=== PATIENT | female | born 1985 | race Two or more races ===

== ENCOUNTER → 2019-11-30 | Emergency (ER) | payer MEDICAID, OTHER ==
[~2019-11-30] VITALS: Ht 167.6 cm; Wt 54.4 kg
[~2019-11-30] MED LIST: ONDANSETRON HCL 4 MG/2 ML VIAL IV ONE; ONDANSETRON HCL 4 MG/2 ML VIAL ONE; PROMETHAZINE HCL 25 MG/ML 1ML IV PRN; SODIUM CHLORIDE 0.9% 1,000 ML IV ONE; SODIUM CHLORIDE 0.9% 1,000 ML IVB ONE; cefTRIAXone 1GM/50ML D5W 50 ML IV ONE
[2019-11-30 13:50] LABS: Basophils # (auto) 0 10 ^3/uL (0-0.2); Eosinophils # (auto) 0 10 ^3/uL (0-0.8); Hemoglobin 13.5 g/dL (12.2-16.2); Mean Corpuscular Volume 80.2 fL (80.0-100.0); Monocytes # (auto) 0.5 10 ^3/uL (0-1.3)
[2019-11-30 13:53] LABS: Basophils % (auto) 0.4 % (0.0-2.0); Eosinophils % (auto) 0.2 % (0.0-7.0); Hematocrit 40.7 % (36.0-46.0); Lymphocytes # (auto) 1.6 10 ^3/uL (0.4-5.4); Lymphocytes % (auto) 21.3 % (10.0-50.0); Mean Corpuscular Hemoglobin 26.6 pg (28.0-32.0); Mean Corpuscular Hgb Conc. 33.2 g/dL (32.0-36.0); Neutrophils # (auto) 5.5 10 ^3/uL (1.6-8.6); Neutrophils % (auto) 72.1 % (37.0-80.0); Nucleated Red Blood Cells % 0.2 %; Platelet Count (auto) 344 10^3/uL (140-450); Red Blood Cells 5.08 10^6/uL (4.0-5.20); Red Cell Distribution Width 19.8 % (11.8-14.3); White Blood Cell 7.6 10^3/uL (4.4-10.8)
[2019-11-30 14:05] LABS: INR 1.22 (0.9-1.15)
[2019-11-30 14:11] LABS: Magnesium 2.6 mg/dL (1.6-2.6)
[2019-11-30 14:13] LABS: Albumin 3.4 g/dL (3.4-5.0); Anion Gap 13 (5-15); Blood Urea Nitrogen 63 mg/dL (7-18); Calcium 9.5 mg/dL (8.5-10.1); Carbon Dioxide 26 mmol/L (21-32); Chloride 82 mmol/L (98-107); Glucose 110 mg/dL (74-106); Potassium 3.8 mmol/L (3.5-5.1); Sodium 121 mmol/L (136-145)
[2019-11-30 14:15] LABS: Alanine Aminotransferase 36 U/L (13-56); Aspartate Aminotransferase 60 U/L (15-37); BUN/Creatinine Ratio 52.9; GFR African American 67 mL/min; GFR Non-African American 56 mL/min
[2019-11-30 14:19] LABS: Alkaline Phosphatase 296 U/L (45-117); Bilirubin, Total 0.8 mg/dL (0.2-1.0); Total Protein 9.5 g/dL (6.4-8.2)
[2019-11-30 17:17] VITALS: BP 97/65
== END | disposition home or self-care (01) ==
LOC: EDUNIT# 12:40 → ER 12:57 → EDBD 12:57
DX: N17.9 Acute kidney failure, unspecified (principal); E87.1 Hypo-osmolality and hyponatremia; Z90.49 Acquired absence of other specified parts of digestive tract
CPT/HCPCS: 36415; 71045; 74176; 80053; 82150; 83605; 83690; 83735; 84484; 84702; 85025; 85610; 85730; 87040; 96361; 96365; 96375; 99291; J0696; J2405; J2550; J7030